=== PATIENT | male | born 1975 | race Caucasian/White ===

== ENCOUNTER 2018-01-09 10:01 | Emergency (ER) | payer OTHER | END 2018-01-09 11:44 | disposition home or self-care (01) | LOC: D.ER 10:01 | DX: S83.91XA Sprain of unspecified site of right knee, initial encounter (principal); X58.XXXA Exposure to other specified factors, initial encounter; Y93.89 Activity, other specified; Y92.019 Unspecified place in single-family (private) house as the place of occurrence of the external cause; M25.561 Pain in right knee ==

== ENCOUNTER 2018-09-18 15:36 | Emergency (ER) | payer OTHER ==
[~2018-09-18] VITALS: Ht 180.3 cm; Wt 129.5 kg
[2018-09-18 15:39] VITALS: Ht 180.3 cm; Wt 129.5 kg
[2018-09-18] MEDS ORDERED: ARAVA10 MG PO (15:41)
[2018-09-18 16:55] LABS: BASOPHILS 0.1 % (0-2); EOSINOPHILS 1.5 % (0-7); HEMATOCRIT 43.6 % (42.0-54.0); HEMOGLOBIN 15.3 g/dL (13.5-17.5); IMMATURE GRANULOCYTES 0.4 % (0-5); LYMPHOCYTES 19.7 % (15-50); MCH 31.7 pg (26.0-34.0); MCHC 35.1 g/dL (31.0-37.0); MCV 90.5 fL (80.0-100.0); MEAN PLATELET VOLUME 9.8 fL (7.4-10.4); MONOCYTES 9.4 % (2-11); NEUTROPHILS 68.9 % (40-80); PLATELET COUNT 263 10x3/uL (130-400); RBC 4.82 10x6/uL (4.20-6.10); WBC 13.6 10x3/uL (4.8-10.8)
[2018-09-18 17:12] LABS: CALC OSMOLALITY 274 mosm/kg (275-300); CALCIUM 8.7 mg/dL (8.5-10.1); CARBON DIOXIDE 25.9 mmol/L (21.0-32.0); CHLORIDE - SERUM 101 mmol/L (98-107); CREATININE - SERUM 0.9 mg/dL (0.6-1.3); GLUCOSE 88 mg/dL (74-106); POTASSIUM - SERUM 3.5 mmol/L (3.5-5.1); SODIUM 138 mmol/L (136-145); UREA NITROGEN 13 mg/dL (7-18); URIC ACID 5.3 mg/dL (2.6-7.2); eGFR NON AFRICAN AMERICAN > 90 mL/min (90-120)
[2018-09-18] MEDS ORDERED: STERAPRED DS 1010 MG PO (18:58)
[2018-09-18] MEDS ORDERED: NORCO 10-325 TA1 TAB PO (18:58)
[2018-09-18] MEDS ORDERED: CLEOCIN HCL300 MG PO (19:06)
[2018-09-18 19:35] VITALS: BP 160/104
== END 2018-09-18 19:35 | disposition home or self-care (01) ==
LOC: D.ER 15:36
PROVIDERS: Family Medicine
DX: M79.675 Pain in left toe(s) (principal); I10 Essential (primary) hypertension

== ENCOUNTER 2019-01-18 17:26 | Emergency (ER) | payer OTHER ==
[~2019-01-18] VITALS: Ht 180.3 cm; Wt 120.5 kg
[~2019-01-18 17:26] MED LIST: ARAVA10 MG PO; CLEOCIN HCL300 MG PO; NORCO 10-325 TA1 TAB PO; STERAPRED DS 1010 MG PO
[2019-01-18 17:33] VITALS: Ht 180.3 cm; Wt 120.5 kg
[2019-01-18] MEDS ORDERED: MEDROL DOSE PACK4 MG PO (20:42)
[2019-01-18] MEDS ORDERED: VOLTAREN75 MG PO (20:42)
[2019-01-18 21:04] VITALS: BP 135/76
== END 2019-01-18 21:11 | disposition home or self-care (01) ==
LOC: D.ER 17:26
DX: M79.671 Pain in right foot (principal); I10 Essential (primary) hypertension

== ENCOUNTER 2019-03-12 15:10 | Emergency (ER) | payer OTHER ==
[~2019-03-12] VITALS: Ht 180.3 cm; Wt 120.5 kg
[~2019-03-12 15:10] MED LIST changes: +MEDROL DOSE PACK4 MG PO; +VOLTAREN75 MG PO
[2019-03-12 15:49] VITALS: Ht 180.3 cm; Wt 120.5 kg
[2019-03-12] MEDS ORDERED: TORADOL10 MG PO (20:08)
[2019-03-12 20:15] VITALS: BP 128/79
== END 2019-03-12 20:15 | disposition home or self-care (01) ==
LOC: D.ER 15:10
DX: M25.462 Effusion, left knee (principal); S83.207A Unspecified tear of unspecified meniscus, current injury, left knee, initial encounter; X58.XXXA Exposure to other specified factors, initial encounter

== ENCOUNTER 2019-03-30 04:59 | Inpatient (IN) | payer SELFPAY ==
[2019-03-30] VITALS (10 sets, daily range): BP systolic 143–202; BP diastolic 77–99; BMI 37.7
[~2019-03-30] VITALS: Ht 180.3 cm; Wt 122.5 kg
[~2019-03-30 04:59] MED LIST changes: +TORADOL10 MG PO
[2019-03-30 06:29] LABS: ALBUMIN 3.2 g/dL (3.4-5.0); ALKALINE PHOSPHATASE 65 U/L (46-116); ALT (SGPT) 57 U/L (10-68); BILIRUBIN - TOTAL 0.64 mg/dL (0.2-1.3); CALC OSMOLALITY 282 mosm/kg (275-300); CARBON DIOXIDE 29.1 mmol/L (21.0-32.0); CHLORIDE - SERUM 107 mmol/L (98-107); CREATININE - SERUM 0.9 mg/dL (0.6-1.3); GLUCOSE 96 mg/dL (74-106); POTASSIUM - SERUM 3.2 mmol/L (3.5-5.1); SODIUM 142 mmol/L (136-145); UREA NITROGEN 13 mg/dL (7-18); eGFR NON AFRICAN AMERICAN > 90 mL/min (90-120)
[2019-03-30 06:45] LABS: BASOPHILS 0.2 % (0-2); HEMATOCRIT 39.3 % (42.0-54.0); HEMOGLOBIN 13.7 g/dL (13.5-17.5); IMMATURE GRANULOCYTES 0.4 % (0-5); LYMPHOCYTES 17.8 % (15-50); MCH 32.3 pg (26.0-34.0); MCHC 34.9 g/dL (31.0-37.0); MCV 92.7 fL (80.0-100.0); MEAN PLATELET VOLUME 10.1 fL (7.4-10.4); NEUTROPHILS 67.6 % (40-80); PLATELET COUNT 244 10x3/uL (130-400); RBC 4.24 10x6/uL (4.20-6.10); RDW 12.9 % (11.5-14.5); WBC 9.3 10x3/uL (4.8-10.8)
--- NOTE | 2019-03-30 07:08 | NUR ---
PT RTND FROM CT. ASSUMED CARE OF PT. RCVD BS REPORT FROM JAYSHREE FIELDS. PT CONT TO C/O RIGHT FACIAL PAIN. NOTIFIED
--- NOTE | 2019-03-30 09:09 | NUR ---
REPORT CALLED TO JAYSHREE GR BY SBAR FORMAT
--- NOTE | 2019-03-30 09:30 | NUR ---
PTS IN HW REPORTS PT HAVING "ALLERGIC RXN" PT SHAKING AND C/O SWELLING TO TONGUE AND UNDER TONGUE. SPEAKING FULL SENTENCES. NO RASH NOTED. DENIES UTICARIA.
--- NOTE | 2019-03-30 09:30 | NUR ---
ZOSYN GTT STOPPED
--- NOTE | 2019-03-30 10:17 | NUR ---
RESTING IN BED WITH EYES CLOSED. AROUSES EASILY WHEN ANME CALLED. "I THINK THE SWELLING IS GOING DOWN" CONT TO C/O RIGHT JAW/FACE PAIN. BP ELEVATED. DR LANGLEY NOTIFIED
--- NOTE | 2019-03-30 11:30 | NUR ---
ADMITTED PER STRETCHER TO ROOM 2107. A/A/OX4. STILL HAS SOME SWELLING UNDER TONGUE BUT NO DIFFICULTY BREATHING. ORIENTED TO ROOM AND CALL LIGHT. BED IN LOW POSITION WITH SIDERAILS UP X 1. PT UP TO BATHROOM AND HAS STEADY GAIT.
--- NOTE | 2019-03-30 11:37 | NUR ---
TRANSPORTED TO ROOM #3542 CONDITION STABLE
[2019-03-30] MEDS ORDERED: LISINOPRIL10 MG PO (11:41)
[2019-03-30] MEDS ORDERED: IBUPROFEN800 MG PO (11:43)
--- NOTE | 2019-03-30 16:45 | NUR ---
ASSESSMENT COMPLETE PT AAOX4 RESP UNLABORED SKIN W/D DENIES ANY NEEDS AT THIS TIME RT JAW NOTED SWOLLEN
--- NOTE | 2019-03-30 21:30 | NUR ---
EVENING ROUNDS COMPLETED. REPORT RECEIVED. PT SITTING UP IN BED WITH EYES OPEN, RR EVEN AND UNLABORED. BED IN LOW POSITION. ORDERED FLUIDS INFUSING ORDERED. NO S/S OF DISTRESS. INTRODUCED SELF TO PT. PT DENIES FURTHER NEEDS AT THIS TIME. EVENING MEDICATIONS ADMINISTERED WITHOUT ISSUE. CALL LUIGHT IN REACH. WILL CTM.
[2019-03-31] VITALS: BP 114/80
--- NOTE | 2019-03-31 01:41 | NUR ---
I have reviewed this patient and I concur with the Shift Assessment completed by the Licensed Practical Nurse today this shift.
--- NOTE | 2019-03-31 02:59 | NUR ---
ADMINISTERED ORDERED ANALGESIC FOR COMPLAINTS OF PAIN IN RIGHT SIDE OF JAW. PT STATES PAIN OF A 8 ON A SCALE OF 0-10.
[2019-03-31 04:00] VITALS: BP 191/97
--- NOTE | 2019-03-31 05:57 | NUR ---
MORNING MEDICATIONS ADMINISTERED WITHOUT ISSUE, 3.2 SERUM POTASSIUM TREATED ORDERED. NO S/S OF DISTRESS NOTED. CALL LIGHT IN REACH. WILL CTM.
[2019-03-31 06:14] LABS: BASOPHILS 0 % (0-2); EOSINOPHILS 0 % (0-7); HEMATOCRIT 34.2 % (42.0-54.0); HEMOGLOBIN 12.1 g/dL (13.5-17.5); IMMATURE GRANULOCYTES 0.2 % (0-5); LYMPHOCYTES 2.9 % (15-50); MCH 32.3 pg (26.0-34.0); MCHC 35.4 g/dL (31.0-37.0); MCV 91.2 fL (80.0-100.0); MONOCYTES 3.1 % (2-11); NEUTROPHILS 93.8 % (40-80); PLATELET COUNT 258 10x3/uL (130-400); RBC 3.75 10x6/uL (4.20-6.10); RDW 12.6 % (11.5-14.5)
[2019-03-31 06:16] LABS: WBC 12.4 10x3/uL (4.8-10.8)
[2019-03-31 06:33] LABS: ALBUMIN 2.5 g/dL (3.4-5.0); ALKALINE PHOSPHATASE 62 U/L (46-116); ALT (SGPT) 45 U/L (10-68); BILIRUBIN - TOTAL 0.35 mg/dL (0.2-1.3); CALCIUM 8.5 mg/dL (8.5-10.1); CARBON DIOXIDE 26.4 mmol/L (21.0-32.0); CHLORIDE - SERUM 105 mmol/L (98-107); CREATININE - SERUM 0.9 mg/dL (0.6-1.3); POTASSIUM - SERUM 3.5 mmol/L (3.5-5.1); PROTEIN - SERUM 6.5 g/dL (6.4-8.2); SODIUM 139 mmol/L (136-145); UREA NITROGEN 13 mg/dL (7-18); eGFR NON AFRICAN AMERICAN > 90 mL/min (90-120)
[2019-03-31 06:35] LABS: CALC OSMOLALITY 285 mosm/kg (275-300); GLUCOSE 239 mg/dL (74-106)
[2019-03-31] MEDS ORDERED: FOLIC ACID1 MG PO (07:56)
--- NOTE | 2019-03-31 08:01 | NUR ---
BEDSIDE SHIFT REPORT GIVEN WITH NIGHT NURSE. PT CO PAIN. SWELLING NOTED ON R SIDE OF FACE. NO RESP DISTRESS. GOAL OF PAIN CONTROL DISCUSSED WITH PT. PT AGREES. PT ALSO INFORMED OF NEEDING UA.
[2019-03-31 08:38] VITALS: BP 177/105
[2019-03-31 11:30] VITALS: BP 170/103
[2019-03-31 11:46] LABS: APPEARANCE CLEAR (CLEAR); BILIRUBIN NEGATIVE (NEGATIVE); COLOR YELLOW (YELLOW); GLUCOSE 250 mg/dL (NEGATIVE); KETONE NEGATIVE (NEGATIVE); NITRITE NEGATIVE (NEGATIVE); PROTEIN NEGATIVE (NEGATIVE); SPECIFIC GRAVITY 1.015 (1.005-1.020); UROBILINOGEN NORMAL (NORMAL)
[2019-03-31 14:48] VITALS: BP 166/101
--- NOTE | 2019-03-31 19:04 | NUR ---
RECIEVED UP IN BED WITH EYES OPENA ND TV ON. ALERT AND ORIENTED X4. IV TO LEFT AC WITH NS INFUSING AT 10CC/HR. UP AD BRIAN TO B/R. DENIES ANY NEEDS AT THISTIME.
[2019-03-31 20:00] VITALS: BP 157/82
[2019-04-01] VITALS: BP 156/85; BP 164/92
[2019-04-01 04:00] VITALS: BP 157/90
[2019-04-01 05:09] LABS: BASOPHILS 0 % (0-2); EOSINOPHILS 0 % (0-7); HEMATOCRIT 33.4 % (42.0-54.0); HEMOGLOBIN 11.8 g/dL (13.5-17.5); IMMATURE GRANULOCYTES 0.3 % (0-5); MCH 32.3 pg (26.0-34.0); MCHC 35.3 g/dL (31.0-37.0); MCV 91.5 fL (80.0-100.0); MEAN PLATELET VOLUME 10.1 fL (7.4-10.4); MONOCYTES 4.5 % (2-11); NEUTROPHILS 91.2 % (40-80); PLATELET COUNT 276 10x3/uL (130-400); RBC 3.65 10x6/uL (4.20-6.10); RDW 12.4 % (11.5-14.5); WBC 13.4 10x3/uL (4.8-10.8)
[2019-04-01 05:14] LABS: ALBUMIN 2.4 g/dL (3.4-5.0); ALKALINE PHOSPHATASE 63 U/L (46-116); ALT (SGPT) 37 U/L (10-68); BILIRUBIN - TOTAL 0.15 mg/dL (0.2-1.3); CALC OSMOLALITY 288 mosm/kg (275-300); CALCIUM 8.6 mg/dL (8.5-10.1); CARBON DIOXIDE 27.4 mmol/L (21.0-32.0); CHLORIDE - SERUM 106 mmol/L (98-107); CREATININE - SERUM 0.7 mg/dL (0.6-1.3); GLUCOSE 258 mg/dL (74-106); MAGNESIUM - SERUM 2.2 mg/dL (1.8-2.4); POTASSIUM - SERUM 3.7 mmol/L (3.5-5.1); PROTEIN - SERUM 6.1 g/dL (6.4-8.2); SODIUM 140 mmol/L (136-145); UREA NITROGEN 14 mg/dL (7-18); eGFR NON AFRICAN AMERICAN > 90 mL/min (90-120)
--- NOTE | 2019-04-01 07:30 | NUR ---
A/A/OX4. SITTING UP IN BED WATCHING TV. DENIES ANY INCREASED PAIN OR DISCOMFORT AT THIS TIME AND VOICES NO REQUESTS. STILL SOME SWELLING TO RIGHT LOWER JAW AND NECK. ASSESSMENT COMPLETED. IV OF N/S PATNE TO LEFT HAND AND INFUSING AT 100/CC HR. NO REDNESS OR EDEMA NOTED AT SITE. WILL CONTINUE POC.
[2019-04-01 09:32] VITALS: BP 153/99
[2019-04-01 11:00] VITALS: BP 172/92
[2019-04-01 15:00] VITALS: BP 150/86
--- NOTE | 2019-04-01 17:20 | NUR ---
I have reviewed this patient and I concur with the Shift Assessment completed by the Licensed Practical Nurse today this shift.
[2019-04-01 19:51] VITALS: BP 169/96
--- NOTE | 2019-04-01 19:52 | NUR ---
RECIEVED UP IN BED WITH EYES OPEN AND TV ON. ALERT AND ORIENTED X4. UP AD BRIAN. IV TO LEFT HAND WITH NS AT 100CC/HR. NO REDNESS OR SWELLING TO SITE. DENIES ANY NEEDS AT THIS TIME.
[2019-04-02 04:30] VITALS: BP 191/104
[2019-04-02 04:46] LABS: BASOPHILS 0 % (0-2); EOSINOPHILS 0 % (0-7); HEMOGLOBIN 11.7 g/dL (13.5-17.5); IMMATURE GRANULOCYTES 0.7 % (0-5); LYMPHOCYTES 4.6 % (15-50); MCH 31.5 pg (26.0-34.0); MCHC 34.4 g/dL (31.0-37.0); MCV 91.6 fL (80.0-100.0); MEAN PLATELET VOLUME 9.9 fL (7.4-10.4); MONOCYTES 6.9 % (2-11); NEUTROPHILS 87.8 % (40-80); PLATELET COUNT 271 10x3/uL (130-400); RBC 3.71 10x6/uL (4.20-6.10); RDW 12.5 % (11.5-14.5); WBC 15.6 10x3/uL (4.8-10.8)
[2019-04-02 05:09] LABS: ALBUMIN 2.5 g/dL (3.4-5.0); ALKALINE PHOSPHATASE 69 U/L (46-116); ALT (SGPT) 29 U/L (10-68); BILIRUBIN - TOTAL 0.21 mg/dL (0.2-1.3); CALC OSMOLALITY 289 mosm/kg (275-300); CALCIUM 8.5 mg/dL (8.5-10.1); CARBON DIOXIDE 27.5 mmol/L (21.0-32.0); CHLORIDE - SERUM 105 mmol/L (98-107); CREATININE - SERUM 0.9 mg/dL (0.6-1.3); GLUCOSE 256 mg/dL (74-106); MAGNESIUM - SERUM 2.1 mg/dL (1.8-2.4); POTASSIUM - SERUM 3.7 mmol/L (3.5-5.1); PROTEIN - SERUM 6.1 g/dL (6.4-8.2); SODIUM 140 mmol/L (136-145); UREA NITROGEN 17 mg/dL (7-18); eGFR NON AFRICAN AMERICAN > 90 mL/min (90-120)
--- NOTE | 2019-04-02 06:05 | NUR ---
UP AND DOWN ALL NIGHT. NOT SLEEPING WELL. TAKES SHORT NAPS AND THEN UNABLE TO SLEEP. LAYING IN BED WITH EYES CLOSED AT THIS TIME.
--- NOTE | 2019-04-02 07:30 | NUR ---
A/A/OX4. DENIES ANY PAIN OR DISCOMFORT AND VOICES NO REQUESTS. ASSESSMENT COMPLETED AND NO WEAKNESS NOTED ON RIGHT SIDE TODAY AND STATES HE FEELS VERY GOOD TODAY. WILL CONTINUE POC ORDERED. SL X 2 PATENT WITHOUT REDNESS OR EDEMA AT SITE. CALL LIGHT IN REACH AND BED IN LOW POSITION. AT BEDSIDE.
--- NOTE | 2019-04-02 07:30 | NUR ---
A/A/OX3. HAVING SOME PAIN AT PRESENT TIME BUT STATES HE CAN WAIT FOR PAIN MED. IV PATENT TO LEFT HAND WITH NO REDNESS OR EDEMA AT SITE. ASSESSMENT COMPLETED AND WILL CONTINUE POC. CALL LIGHT IN REACH AND BED IN LOW POSITION.
[2019-04-02 10:09] VITALS: BP 123/78
--- NOTE | 2019-04-02 14:02 | NUR ---
I have reviewed this patient and I concur with the Shift Assessment completed by the Licensed Practical Nurse today this shift.
[2019-04-02] MEDS ORDERED: AUGMENTIN 875-11 TAB PO (14:11)
[2019-04-02] MEDS ORDERED: CLEOCIN HCL300 MG PO (14:11)
--- NOTE | 2019-04-02 16:16 | NUR ---
DISCHARGE INSTRUCTION REVIEWED WITH PT AND HIS . VERBALIZES UNDERSTANDING WITH NO QUESTIONS. SL X 2 RIGHT WRIST AND RIGHT AC REMOVED WITH CATH TIPS INTACT. PT LEFT FLOOR AMB AT HIS REQUEST. HAD ALL OF HIS PERSONAL BELONGINGS AND LEFT FACILITY VIA HIS OWN PRIVATE VEHICLE WITH HIS .
--- NOTE | 2019-04-02 16:30 | NUR ---
IV LEFT HAND INFILTRATED AND DC'D. RESTARTED IN RIGHT INNER WRIST X 2 ATTEMPTS AND TOLERATED WELL.
[2019-04-02 19:02] VITALS: BP 174/91
[2019-04-02 19:06] VITALS: BP 165/86
[2019-04-02 20:00] VITALS: BP 168/97
--- NOTE | 2019-04-02 20:21 | NUR ---
RECIEVED UP IN BED WITH VISITOR AT BEDSIDE. ALERT AND ORIENTED X4. UP AD BRIAN. IV TO RIGHT FA WITH NS AT 100CC/HR. NO REDNESS OR SWELLING TO SIT. RIGHT SIDE OF FACE WITH SLIGHT SWELLING. DENIES ANY NEEDS AT THIS TIME.
[2019-04-03] VITALS (7 sets, daily range): BP systolic 137–179; BP diastolic 84–112; Ht 180.3 cm; Wt 122.5 kg
--- NOTE | 2019-04-03 01:27 | NUR ---
PT CAME OUT OF HIS ROOM WITH C/O INCREASED SWELLING AND PAIN. STATING THAT MORPHINE DID NOT HELP HIS PAIN. LEFT SIDE OF FACE APPEARS MORE SWOLLEN AND HARD FROM EAR LOBE TO MID DU. CALLED GUY PEREZ WITH NEW ORDERS TO STOP LISINOPRIL GIVE APRESOLINE FOR SYSTOLIC GREATER RHAN 170. ALSO, D/C MORPHINE AND GIVE DILAUDID, RESUME SOLUMEDROL AT 60MGQ8 HRS. PT AAWARE OF NEW ORDERS. DILAUDID GIVE WITH PAIN RELIEF.
--- NOTE | 2019-04-03 02:20 | NUR ---
RECIEVED UP IN BED WITH VISITORS AT BEDSIDE. IV TO RIGHT FA SL.. DENIES ANY PAIN AT THIS TIME. RIGHT SIDE OF FACE STILL SWOLLEN AND HARDEN AREA FROM MANDIBLE TO MID CHIN. STATES "IT'S BETTER TODAY". UP AD BRIAN. DENIES ANY NEEDS AT THIS TIME.
[2019-04-03 05:19] LABS: BASOPHILS 0.1 % (0-2); EOSINOPHILS 0.1 % (0-7); HEMATOCRIT 35.7 % (42.0-54.0); HEMOGLOBIN 12.4 g/dL (13.5-17.5); IMMATURE GRANULOCYTES 1.2 % (0-5); LYMPHOCYTES 5.9 % (15-50); MCH 31.7 pg (26.0-34.0); MCHC 34.7 g/dL (31.0-37.0); MCV 91.3 fL (80.0-100.0); MEAN PLATELET VOLUME 9.7 fL (7.4-10.4); NEUTROPHILS 81.7 % (40-80); PLATELET COUNT 321 10x3/uL (130-400); RBC 3.91 10x6/uL (4.20-6.10); RDW 12.5 % (11.5-14.5); WBC 16.4 10x3/uL (4.8-10.8)
[2019-04-03 05:39] LABS: ALBUMIN 2.6 g/dL (3.4-5.0); ALKALINE PHOSPHATASE 54 U/L (46-116); ALT (SGPT) 29 U/L (10-68); CALCIUM 8.4 mg/dL (8.5-10.1); CHLORIDE - SERUM 104 mmol/L (98-107); CREATININE - SERUM 0.9 mg/dL (0.6-1.3); MAGNESIUM - SERUM 2.2 mg/dL (1.8-2.4); POTASSIUM - SERUM 3.5 mmol/L (3.5-5.1); PROTEIN - SERUM 6.3 g/dL (6.4-8.2); SODIUM 140 mmol/L (136-145); UREA NITROGEN 15 mg/dL (7-18); VANCOMYCIN - TROUGH 2.2 ug/mL (10.0-20.0); eGFR NON AFRICAN AMERICAN > 90 mL/min (90-120)
[2019-04-03 05:43] LABS: CALC OSMOLALITY 282 mosm/kg (275-300); GLUCOSE 145 mg/dL (74-106)
--- NOTE | 2019-04-03 08:03 | NUR ---
REPORT RECEIVED. WILL CONTINUE WITH POC. PT CURRENTLY LYING SEMI FOWLERS. CALL LIGHT W/I REACH. PT IS AAO AND UP AD BRIAN. RR EVEN AND UNLABORED ON RA. NS INFUSING @100ML/HR VIA R.FOR PIV. PT COMPLAINING OF LEFT JAW/NECK PAIN. PT REQUEST PAIN MEDICATION. PAIN MEDICATION ADMINISTERED BY NIGHTSHIFT. PT DENIES ANY FURTHER NEEDS. NO S/S OF DISTRESS NOTED. WILL CTM.
--- NOTE | 2019-04-03 13:11 | MORECARE ---
CASE MANAGEMENT DISCHARGE SUMMARY PATIENT: BLAYNE JONES UNIT: [id number] ADM DATE: 03/30/19 AGE: 43 : 71 SEX: M ROOM/BED: D.2108 AUTHOR: GOGO RIVAS PHYSICIAN: REFERRING PHYSICIAN: MARY OBRIEN MD DATE OF SERVICE: 04/03/19 Discharge Plan Patient Name: BLAYNE JONES [facility] [facility] 1975 Planned Disposition: Home Anticipated Discharge Date: 04/03/19 Discharge Date: Expected LOS: 4 Initial Reviewer: [email or web address] Initial Review Date: 04/03/2019 Generated: 04/03/19 2:11 pm Patient Name: BLAYNE JONES Page 13741 at 1311 All edits/amendments must be made on the electronic document DICTATION DATE: 04/03/19 1310 RECRUITER: REHANA 04/03/19 1310 RPT#: [id number] DC DATE: STATUS: ADM IN [facility] [address] [place] [address] END OF REPORT
--- NOTE | 2019-04-03 13:51 | MORECARE ---
CASE MANAGEMENT DISCHARGE SUMMARY PATIENT: BLAYNE JONES UNIT: [id number] ADM DATE: 03/30/19 AGE: 43 : 71 SEX: M ROOM/BED: D.2104 AUTHOR: GOGO RIVAS PHYSICIAN: REFERRING PHYSICIAN: MARY OBRIEN MD DATE OF SERVICE: 04/03/19 Discharge Plan Patient Name: BLAYNE JONES [facility] [facility] 1975 Planned Disposition: Home Anticipated Discharge Date: 04/03/19 Discharge Date: Expected LOS: 4 Initial Reviewer: [email or web address] Initial Review Date: 04/03/2019 Generated: 04/03/19 2:51 pm DCPIA - Discharge Planning Initial Assessment Updated by [email or web address]: Bin Miranda on 04/03/19 1:50 pm * Is the patient Alert and Oriented? Yes * How many steps to enter\exit or inside your home? * PCP [facility] * Pharmacy [facility] MAIL ORDER OR [facility] OR [facility], DEPENDING ON HOW LATE IT IS. * Preadmission Environment Home with Family * ADLs Independent * Equipment None * Other Equipment NO MEDICAL EQUIPMENT PROVIDER PREFERENCE * List name and contact numbers for known caregivers / representatives who currently or will assist patient after discharge: DARRELL KAISER, MOTHER, * Verbal permission to speak to the caregivers and representatives has been obtained from the patient. N/A * Community resources currently utilized None * Please name any agencies selected above. NONE * Additional services required to return to the preadmission environment? No * Can the patient safely return to the preadmission environment? Yes * Has this patient been hospitalized within the prior 30 days at any hospital? No Last DP export: 04/03/19 12:11 pm Patient Name: BLAYNE JONES Page 96150 at 1351 All edits/amendments must be made on the electronic document DICTATION DATE: 04/03/19 1350 SUPPLIER DIVERSITY DIRECTOR: REHANA 04/03/19 1350 RPT#: [id number] DC DATE: STATUS: ADM IN [facility] [address] [place] [address] END OF REPORT
--- NOTE | 2019-04-03 13:59 | MORECARE ---
CASE MANAGEMENT DISCHARGE SUMMARY PATIENT: BLAYNE JONES UNIT: [id number] ADM DATE: 03/30/19 AGE: 43 : 71 SEX: M ROOM/BED: D.2103 AUTHOR: EVELYNDOC PHYSICIAN: REFERRING PHYSICIAN: MARY OBRIEN MD DATE OF SERVICE: 04/03/19 Discharge Plan Patient Name: BLAYNE JONES Facility: [facility]:[place] : 1975 Planned Disposition: Home Anticipated Discharge Date: 04/03/19 Discharge Date: Expected LOS: 4 Initial Reviewer: [email or web address] Initial Review Date: 04/03/2019 Generated: 04/03/19 2:58 pm Comments DCP- Discharge Planning Updated by [email or web address]: Bin Miranda on 04/03/19 12:[address] Patient Name: BLAYNE JONES Admission Status: ER Accout number: [id number] Admission Date: 03-30-2019 : 1975 Admission Diagnosis:CELLULITIS OF HEAD [ANY PART, EXCEPT FACE] Attending: MARY OBRIEN Current LOS: 4 Anticipated DC Date: 04-03-2019 Planned Disposition: Home Primary Insurance: UNINSURED DISCOUNT PLAN Discharge Planning Comments: CM MET WITH PT IN ROOM TO DISCUSS DISCHARGE PLANNING AND NEEDS. PT REPORTS LIVING AT HOME INDEPENDENTLY WITH A ROOM MATE. PT HAS NO MEDICAL EQUIPMENT AND NO OUTSIDE SERVICES ASSISTING IN THE HOME. CM DISCUSSED AVAILABILITY OF HOME HEALTH, REHAB SERVICES AND MEDICAL EQUIPMENT. PT DENIES DISCHARGE NEEDS, REPORTS HE PLANS TO DRIVE HIMSELF HOME AT TIME OF DISCHARGE, BUT DOES HAVE A FRIEND TO PICK HIM UP IF NECESSARY. PT REPORTS HAVING A DENTIST TO FOLLOW UP WITH FOR TOOTH EXTRACTION ONCE HE LEAVES THE HOSPITAL. PT PLANS TO DISCHARGE HOME WITH ROOM MATE AT DISCHARGE. PT DENIES DISCHARGE NEEDS, STATES HE IS PLANNING TO DRIVE HIMSELF HOME AT DISCHARGE. Phone Engineer: Bin Miranda DCPIA - Discharge Planning Initial Assessment Updated by [email or web address]: Bin Miranda on 04/03/19 1:50 pm * Is the patient Alert and Oriented? Yes * How many steps to enter\exit or inside your home? * PCP [facility] * Pharmacy [facility] MAIL ORDER OR [facility] OR [facility], DEPENDING ON HOW LATE IT IS. * Preadmission Environment Home with Family * ADLs Independent * Equipment None * Other Equipment NO MEDICAL EQUIPMENT PROVIDER PREFERENCE * List name and contact numbers for known caregivers / representatives who currently or will assist patient after discharge: DARRELL KAISER, MOTHER, * Verbal permission to speak to the caregivers and representatives has been obtained from the patient. N/A * Community resources currently utilized None * Please name any agencies selected above. NONE * Additional services required to return to the preadmission environment? No * Can the patient safely return to the preadmission environment? Yes * Has this patient been hospitalized within the prior 30 days at any hospital? No Last DP export: 04/03/19 12:51 pm Patient Name: BLAYNE JONES Page 99888 at 1359 All edits/amendments must be made on the electronic document DICTATION DATE: 04/03/191357 METAL TANK BUILDER: REHANA 04/03/19 1358 RPT#: [id number] MO DATE: STATUS: ADM IN [facility] [address] [place] [address] END OF REPORT
--- NOTE | 2019-04-03 16:27 | NUR ---
I have reviewed this patient and I concur with the Shift Assessment completed by the Licensed Practical Nurse today this shift.
[2019-04-04] VITALS: BP 142/82
[2019-04-04 04:30] VITALS: BP 162/92
[2019-04-04 05:42] LABS: ALBUMIN 2.8 g/dL (3.4-5.0); ALKALINE PHOSPHATASE 99 U/L (46-116); ALT (SGPT) 31 U/L (10-68); BILIRUBIN - TOTAL 0.28 mg/dL (0.2-1.3); CALC OSMOLALITY 284 mosm/kg (275-300); CALCIUM 8.5 mg/dL (8.5-10.1); CARBON DIOXIDE 27.8 mmol/L (21.0-32.0); CHLORIDE - SERUM 102 mmol/L (98-107); MAGNESIUM - SERUM 2.4 mg/dL (1.8-2.4); POTASSIUM - SERUM 3.9 mmol/L (3.5-5.1); PROTEIN - SERUM 6.9 g/dL (6.4-8.2); SODIUM 137 mmol/L (136-145); UREA NITROGEN 16 mg/dL (7-18); eGFR NON AFRICAN AMERICAN 86 mL/min (90-120)
[2019-04-04 05:44] LABS: GLUCOSE 270 mg/dL (74-106)
[2019-04-04 05:53] LABS: HEMATOCRIT 40.8 % (42.0-54.0); HEMOGLOBIN 14.1 g/dL (13.5-17.5); MCH 31.8 pg (26.0-34.0); MCHC 34.6 g/dL (31.0-37.0); MCV 92.1 fL (80.0-100.0); MEAN PLATELET VOLUME 9.9 fL (7.4-10.4); PLATELET COUNT 394 10x3/uL (130-400); RBC 4.43 10x6/uL (4.20-6.10); RDW 12.6 % (11.5-14.5); WBC 20.8 10x3/uL (4.8-10.8)
[2019-04-04 06:53] LABS: LYMPHOCYTES 5 % (15-50); MONOCYTES 7 % (2-11); NEUTROPHILS 87 % (40-80); PLATELET ESTIMATE NORMAL
--- NOTE | 2019-04-04 08:53 | NUR ---
AM MEDS GIVEN AT THIS TIME. PT A/O X4, RESP EVEN AND NONLABORED ON RA. IVPB CLEOCIN HUNG AT THIS TIME TO INFUSE TO RT FA. PT RATES PAIN LEVEL OF 6/10, STATED PAIN MEDICATION IS DUE AROUND 10. RT SIDE OF FACE SWOLLEN, PT DENIES ANY NEEDS AT THIS TIME. CALL LIGHT IN REACH, NAD NOTED, WILL CONTINUE PLAN OF CARE.
[2019-04-04 09:18] VITALS: BP 179/72
--- NOTE | 2019-04-04 10:07 | NUR ---
1MG OF DILAUDID FOR PAIN LEVEL OF 9/10. PT DENIES ANY OTHER NEEDS AT THIS TIME. CALL LIGHT IN REACH, NAD NOTED, WILL CONTINUE TO MONTIOR
--- NOTE | 2019-04-04 15:52 | NUR ---
GAVE 1MG OF DILAUDID FOR PAIN LEVEL OF 9/10. IVPB CLEOCIN HUNG AT THIS TIME. PT DENIES ANY OTHER NEEDS AT THIS TIME. FAMILY AT BEDSIDE, NAD NOTED.
[2019-04-04 16:09] LABS: BASOPHILS 0.1 % (0-2); EOSINOPHILS 0 % (0-7); HEMATOCRIT 38.6 % (42.0-54.0); HEMOGLOBIN 14.2 g/dL (13.5-17.5); IMMATURE GRANULOCYTES 2.3 % (0-5); LYMPHOCYTES 3.2 % (15-50); MCH 33.6 pg (26.0-34.0); MCHC 36.8 g/dL (31.0-37.0); MCV 91.3 fL (80.0-100.0); MONOCYTES 6.7 % (2-11); NEUTROPHILS 87.7 % (40-80); PLATELET COUNT 331 10x3/uL (130-400); RBC 4.23 10x6/uL (4.20-6.10); RDW 12.9 % (11.5-14.5); WBC 20.9 10x3/uL (4.8-10.8)
[2019-04-04 16:21] LABS: INR 1.01 (0.85-1.17); PROTIME 12.8 SECONDS (11.6-15.0)
[2019-04-04 16:27] LABS: ALBUMIN 2.6 g/dL (3.4-5.0); ALKALINE PHOSPHATASE 78 U/L (46-116); ALT (SGPT) 31 U/L (10-68); BILIRUBIN - TOTAL 0.18 mg/dL (0.2-1.3); CALC OSMOLALITY 284 mosm/kg (275-300); CALCIUM 7.9 mg/dL (8.5-10.1); CARBON DIOXIDE 26.8 mmol/L (21.0-32.0); CHLORIDE - SERUM 104 mmol/L (98-107); CREATININE - SERUM 0.9 mg/dL (0.6-1.3); GLUCOSE 190 mg/dL (74-106); POTASSIUM - SERUM 3.9 mmol/L (3.5-5.1); PROTEIN - SERUM 5.9 g/dL (6.4-8.2); SODIUM 139 mmol/L (136-145); UREA NITROGEN 17 mg/dL (7-18); eGFR NON AFRICAN AMERICAN > 90 mL/min (90-120)
--- NOTE | 2019-04-04 19:00 | NUR ---
PATIENT LAYING IN BED. NO COMPLAINTS AT THIS TIME. NO DISTRESS NOTED. FAMILY AT BEDSIDE.
[2019-04-05] VITALS: BP 186/95
--- NOTE | 2019-04-05 02:05 | NUR ---
PATIENT LAYING IN BED. COMPLAINS OF PAIN. NO OTHER COMPLAINTS AT THIS TIME. NO DISTRESS NOTED.
[2019-04-05 04:30] VITALS: BP 151/88
[2019-04-05 07:14] LABS: WBC 21.7 10x3/uL (4.8-10.8)
[2019-04-05 07:15] LABS: HEMATOCRIT 36.7 % (42.0-54.0); HEMOGLOBIN 12.7 g/dL (13.5-17.5); MCH 31.8 pg (26.0-34.0); MCHC 34.6 g/dL (31.0-37.0); MCV 91.8 fL (80.0-100.0); PLATELET COUNT 329 10x3/uL (130-400); RDW 12.6 % (11.5-14.5)
[2019-04-05 07:31] LABS: ALBUMIN 2.4 g/dL (3.4-5.0); ALKALINE PHOSPHATASE 67 U/L (46-116); ALT (SGPT) 24 U/L (10-68); CALC OSMOLALITY 285 mosm/kg (275-300); CALCIUM 8.4 mg/dL (8.5-10.1); CARBON DIOXIDE 25.1 mmol/L (21.0-32.0); CHLORIDE - SERUM 104 mmol/L (98-107); CREATININE - SERUM 0.8 mg/dL (0.6-1.3); GLUCOSE 247 mg/dL (74-106); MAGNESIUM - SERUM 2.4 mg/dL (1.8-2.4); POTASSIUM - SERUM 3.8 mmol/L (3.5-5.1); PROTEIN - SERUM 6.2 g/dL (6.4-8.2); SODIUM 138 mmol/L (136-145); UREA NITROGEN 18 mg/dL (7-18); eGFR NON AFRICAN AMERICAN > 90 mL/min (90-120)
[2019-04-05 07:44] LABS: LYMPHOCYTES 5 % (15-50); MONOCYTES 6 % (2-11); NEUTROPHILS 89 % (40-80); PLATELET ESTIMATE NORMAL
[2019-04-05 09:23] VITALS: BP 176/97
[2019-04-05 12:05] VITALS: BP 163/95
[2019-04-05 18:15] VITALS: BP 126/79
--- NOTE | 2019-04-05 18:41 | NUR ---
I have reviewed this patient and I concur with the Shift Assessment completed by the Licensed Practical Nurse today this shift.
--- NOTE | 2019-04-05 19:26 | NUR ---
ASSESSMENT COMPLETE, PT A&O. RESPERATIONS EVEN ON RA. IV TO RIGHT FOREAR, SL. SITE CLEAN AND DRY. PT CURRENTLY DENIES PAIN OR NEEDS. BED LOW, CL IN REACH.
[2019-04-05 20:00] VITALS: BP 155/100
--- NOTE | 2019-04-05 21:37 | NUR ---
AMBULATING IN [place], GAIT STEADY.
--- NOTE | 2019-04-05 23:31 | NUR ---
DILAUDID 1 MG GIVEN FOR C/O PAIN TO RIGHT JAW. RATES PAIN AT A 7 ON PAIN SCALE.
[2019-04-06] VITALS: BP 150/100
--- NOTE | 2019-04-06 03:48 | NUR ---
IV TO RIGHT WIRST COVERED, PT UP TO SHOWER.
[2019-04-06 04:00] VITALS: BP 137/76
--- NOTE | 2019-04-06 04:03 | NUR ---
PTS BP 172/102. HYDRALAZINE 10 MG GIVEN SLOW IVP.
--- NOTE | 2019-04-06 07:50 | OP ---
PATIENT NAME: BLAYNE JONES MEDICAL RECORD: [id number] :[birth year] LOCATION:D.M2 D.2108 ADMISSION DATE:03/30/19 SURGEON: LEVI HAWTHORNE MD DATE OF OPERATION: 04/05/2019 PREOPERATIVE DIAGNOSIS: Right mandibular dental infection with a broken off tooth. POSTOPERATIVE DIAGNOSIS: Right mandibular dental infection with a broken off tooth. PROCEDURE: Extraction of a right mandibular molar, incision and drainage of dental abscess. SURGEON: Levi Hawthorne MD ANESTHESIA: General orotracheal. BLOOD LOSS: 1 cc. SPECIMENS: Right mandibular tooth and cultures for aerobic, anaerobic, and Gram stain. COMPLICATIONS: None. DISPOSITION: Recovery stable. DESCRIPTION OF PROCEDURE: He was brought to the operating room and placed in supine position, sedated and intubated by anesthesia. A rubber tooth block was placed between the left molars. Right side was examined. He had a tooth that was completely decayed with expose to separate the tooth roots. The entire tooth above the gumline was gone and there was some mucosa that actually partially healed over that. There was some bone spicules sticking up and decayed brown tooth roots. The area medially and laterally was injected with a total of less than 1 cc of 1% lidocaine with 1:100,000 epinephrine. Started with the posterior tooth roots, the lingual side was addressed first. A pick was used to dissect around it, loosening up and then the medial posterior root was removed, then the lateral posterior root was removed. The 2 anterior roots actually partially connected together and they were dissected out with a pick. Dental ligaments were loosened up and then it was grasped and removed, all those roots removed, completely intact. There was really no purulence draining from any of the tooth roots. The other teeth looked okay. There was no inflammation around them. On the lingual surface of the mandible, just immediately below the tooth I extracted was soft. I inserted a syringe with an 18-gauge needle, evacuated about 5 cc of thick yellow purulence. This was sent for aerobic, anaerobic, and Gram stain. A vertical incision was made with a 15-blade there and quite a bit more purulence was expressed until that was completely flat. The mouth was then irrigated repeatedly with Peridex. There was really no significant bleeding there. The rubber tooth guard bite block was removed. Pharynx was suctioned. He was awakened, extubated, and transported to recovery in good condition. No complications. TRANSINT:[id number] Voice Confirmation ID: [id number] DOCUMENT ID: [id number] OPERATIVE REPORT [id number] ROBERT,LEVI GILLILAND MD at 0750 CC: [id number] DICTATION DATE: 04/05/19 0948 ROPE MAKING MACHINE OPERATOR: 04/05/19 1030 ADM IN [place] [id number] [place] [address]
--- NOTE | 2019-04-06 07:50 | CN ---
PATIENT NAME:BLAYNE JONES MEDICAL RECORD: [id number] : [birth year] LOCATION:D. D.2108 ADMIT DATE: 03/30/19 ACCOUNT: [id number] CONSULTING PHYSICIAN: KIRTI HALE MD REFERRING PHYSICIAN: MARY OBRIEN MD DATE OF CONSULTATION: 04/03/2019 HISTORY: Mr. Jones is a 43-year-old male who presented with toothache and progressive right jaw pain and swelling for about a week. He was admitted on the 30 of March, about 5 days ago. He was placed on clindamycin and Zosyn. I believe he appeared to have an allergy to the Zosyn, so he was changed to clindamycin, imipenem, and vancomycin. White count on admission was just 9. It did go up after he had been put on steroids and basically nothing has changed since then. Pain and swelling have stayed about the same. He really has not responded. He had a CT when he was admitted that showed no abscess. He had a CT yesterday that showed he had no abscess, but he is not really improving with treatment. PAST MEDICAL HISTORY: Includes arthritis. MEDICATIONS: His previous medications include Voltaren and Toradol. He had been on some Keflex and some amoxicillin, I believe, prior to admission, given to him by dentist. White count on admission was 9.3, hemoglobin 13.7, and neutrophils 67%. His primary doctor is [place] doctor. He does not actively have a dentist currently. PHYSICAL EXAMINATION: GENERAL: He is awake and alert. He has eaten a sandwich. He has got a normal voice. FACE: Normal and symmetric. EYES: Sclerae and conjunctivae are normal. NOSE: Normal. ORAL CAVITY AND OROPHARYNX: He has no trismus. He has got a right mandibular molar that is for the most part broken up. He has got some spicules sticking up above the gum, but most of the tooth is gone. He has got firmness basically slightly on the medial aspect and the lateral aspect and right under that tooth. The floor of the mouth is really not involved. There is no palpable abscess. It is just firm around that area. NECK: No other adenopathy, inflammation, or tenderness. IMPRESSION: Dental infection with cellulitis, edema, and some phlegmon changes there, but no fluid collection to drain. He is not responding to antibiotics. I am going to switch him to clindamycin and Rocephin. He has already been given some steroids. If he does not respond, he can probably even be discharged as his exam is now to get that tooth taken care of, but if they decide he cannot go home there is nothing to drain, but the tooth could be extracted. TRANSINT:[id number] Voice Confirmation ID: [id number] DOCUMENT ID: [id number] CONSULT REPORT [id number] ROBERT,BLAYNE HALE, KIRTI HARRIS at 0750 CC: [id number] DICTATION DATE: 04/03/19 1608 PLATER HOT DIP: 04/03/19 1722 ADM IN [place] [id number] [place] [id number]
[2019-04-06 09:43] VITALS: BP 162/98
[2019-04-06 12:32] LABS: BASOPHILS 0.1 % (0-2); EOSINOPHILS 0.1 % (0-7); HEMATOCRIT 41.6 % (42.0-54.0); HEMOGLOBIN 14.6 g/dL (13.5-17.5); IMMATURE GRANULOCYTES 3.3 % (0-5); LYMPHOCYTES 5.3 % (15-50); MCH 32.6 pg (26.0-34.0); MCHC 35.1 g/dL (31.0-37.0); MCV 92.9 fL (80.0-100.0); MEAN PLATELET VOLUME 9.6 fL (7.4-10.4); MONOCYTES 7.7 % (2-11); NEUTROPHILS 83.5 % (40-80); PLATELET COUNT 414 10x3/uL (130-400); RBC 4.48 10x6/uL (4.20-6.10); RDW 12.9 % (11.5-14.5); WBC 21.3 10x3/uL (4.8-10.8)
[2019-04-06 12:47] LABS: CALC OSMOLALITY 280 mosm/kg (275-300); CALCIUM 8.7 mg/dL (8.5-10.1); CHLORIDE - SERUM 102 mmol/L (98-107); CREATININE - SERUM 0.9 mg/dL (0.6-1.3); GLUCOSE 139 mg/dL (74-106); POTASSIUM - SERUM 3.4 mmol/L (3.5-5.1); SODIUM 139 mmol/L (136-145); UREA NITROGEN 15 mg/dL (7-18); eGFR NON AFRICAN AMERICAN > 90 mL/min (90-120)
[2019-04-06 13:27] VITALS: BP 160/83
--- NOTE | 2019-04-06 13:59 | NUR ---
I have reviewed this patient and I concur with the Shift Assessment completed by the Licensed Practical Nurse today this shift.
[2019-04-06] MEDS ORDERED: NORVASC10 MG PO (15:44)
[2019-04-06] MEDS ORDERED: HYDROCODON-ACE1 EA10 PO (16:11)
--- NOTE | 2019-04-06 16:37 | NUR ---
PT DC'D HOME WITH DISCHARGE INSTRUCTIONS AND PRESCRIPTIONS. PT LFA IV DC'D WITH CATHETER TIP IN PLACE. NO S/S OF DISTRESS. VITALS STABLE.
--- NOTE | 2019-04-06 16:49 | MORECARE ---
CASE MANAGEMENT DISCHARGE SUMMARY PATIENT: BLAYNE JONES UNIT: [id number] ADM DATE: 03/30/19 AGE: 43 : 71 SEX: M ROOM/BED: D.2109 AUTHOR: EVELYN,DOC PHYSICIAN: REFERRING PHYSICIAN: MARY OBRIEN MD DATE OF SERVICE: 04/06/19 Discharge Plan Patient Name: BLAYNE JONES Facility: [facility]:[place] : 1975 Planned Disposition: Home Anticipated Discharge Date: 04/06/19 Discharge Date: Expected LOS: 7 Initial Reviewer: [email or web address] Initial Review Date: 04/03/2019 Generated: 04/06/19 5:49 pm DCP- Discharge Planning Updated by [email or web address]: Bin Miranda on 04/03/19 12:[address] Patient Name: BLAYNE JONES Admission Status: ER Accout number: [id number] Admission Date: 03-30-2019 : 1975 Admission Diagnosis:CELLULITIS OF HEAD [ANY PART, EXCEPT FACE] Attending: MARY OBRIEN Current LOS: 4 Anticipated DC Date: 04-03-2019 Planned Disposition: Home Primary Insurance: UNINSURED DISCOUNT PLAN Discharge Planning Comments: CM MET WITH PT IN ROOM TO DISCUSS DISCHARGE PLANNING AND NEEDS. PT REPORTS LIVING AT HOME INDEPENDENTLY WITH A ROOM MATE. PT HAS NO MEDICAL EQUIPMENT AND NO OUTSIDE SERVICES ASSISTING IN THE HOME. CM DISCUSSED AVAILABILITY OF HOME HEALTH, REHAB SERVICES AND MEDICAL EQUIPMENT. PT DENIES DISCHARGE NEEDS, REPORTS HE PLANS TO DRIVE HIMSELF HOME AT TIME OF DISCHARGE, BUT DOES HAVE A FRIEND TO PICK HIM UP IF NECESSARY. PT REPORTS HAVING A DENTIST TO FOLLOW UP WITH FOR TOOTH EXTRACTION ONCE HE LEAVES THE HOSPITAL. PT PLANS TO DISCHARGE HOME WITH ROOM MATE AT DISCHARGE. PT DENIES DISCHARGE NEEDS, STATES HE IS PLANNING TO DRIVE HIMSELF HOME AT DISCHARGE. Lamp Shade Assembler: Bin Miranda DCPIA - Discharge Planning Initial Assessment Updated by [email or web address]: Bin Miranda on 04/03/19 1:50 pm * Is the patient Alert and Oriented? Yes * How many steps to enter\exit or inside your home? * PCP [facility] * Pharmacy [facility] MAIL ORDER OR [facility] OR [facility], DEPENDING ON HOW LATE IT IS. * Preadmission Environment Home with Family * ADLs Independent * Equipment None * Other Equipment NO MEDICAL EQUIPMENT PROVIDER PREFERENCE * List name and contact numbers for known caregivers / representatives who currently or will assist patient after discharge: DARRELL KAISER, MOTHER, * Verbal permission to speak to the caregivers and representatives has been obtained from the patient. N/A * Community resources currently utilized None * Please name any agencies selected above. NONE * Additional services required to return to the preadmission environment? No * Can the patient safely return to the preadmission environment? Yes * Has this patient been hospitalized within the prior 30 days at any hospital? No Last DP export: 04/03/19 12:59 pm Patient Name: BLAYNE JONES Page [phone] at 1649 All edits/amendments must be made on the electronic document DICTATION DATE: 04/06/191648 JACK MACHINE OPERATOR: REHANA 04/06/191648 RPT#: [id number] ID DATE: STATUS: ADM IN [facility] [address] [place] [address] END OF REPORT
[2019-04-10 18:07] LABS: AEROBE ID Final report (())
== END 2019-04-06 17:18 | disposition home or self-care (01) | DRG 158 ==
LOC: D.ER 04:59 → D.M2 08:46
PROVIDERS: Anesthesiology; Family Medicine; Family Medicine Adult Medicine; Otolaryngology; ADMIT Internal Medicine Nephrology; ATTEND Internal Medicine Nephrology
PROC: 0C96XZZ Drainage of Lower Gingiva, External Approach (ICD-10-PCS; 2019-04-05)
PROC: 0CDXXZ0 Extraction of Lower Tooth, Single, External Approach (ICD-10-PCS; principal; 2019-04-05 07:30)
DX: M27.2 Inflammatory conditions of jaws (principal); L03.811 Cellulitis of head [any part, except face]; K02.9 Dental caries, unspecified; S02.5XXA Fracture of tooth (traumatic), initial encounter for closed fracture; X58.XXXA Exposure to other specified factors, initial encounter; T78.3XXA Angioneurotic edema, initial encounter; T36.0X5A Adverse effect of penicillins, initial encounter; I10 Essential (primary) hypertension; K04.7 Periapical abscess without sinus

== ENCOUNTER 2019-04-08 10:54 | Emergency (ER) | payer OTHER ==
[~2019-04-08] VITALS: Ht 180.3 cm; Wt 119.1 kg
[~2019-04-08 10:54] MED LIST changes: +AUGMENTIN 875-11 TAB PO; +FOLIC ACID1 MG PO; +HYDROCODON-ACE1 EA10 PO; +IBUPROFEN800 MG PO; +LISINOPRIL10 MG PO; +NORVASC10 MG PO
[2019-04-08 10:59] VITALS: Ht 180.3 cm; Wt 119.1 kg
[2019-04-08 11:28] LABS: BASOPHILS 0.1 % (0-2); EOSINOPHILS 2.3 % (0-7); HEMATOCRIT 44.3 % (42.0-54.0); HEMOGLOBIN 15.7 g/dL (13.5-17.5); IMMATURE GRANULOCYTES 3.5 % (0-5); LYMPHOCYTES 21.7 % (15-50); MCH 32.4 pg (26.0-34.0); MCHC 35.4 g/dL (31.0-37.0); MCV 91.3 fL (80.0-100.0); MEAN PLATELET VOLUME 9.6 fL (7.4-10.4); MONOCYTES 8.2 % (2-11); NEUTROPHILS 64.2 % (40-80); PLATELET COUNT 345 10x3/uL (130-400); RBC 4.85 10x6/uL (4.20-6.10); RDW 12.6 % (11.5-14.5); WBC 11.4 10x3/uL (4.8-10.8)
[2019-04-08 11:40] LABS: ALBUMIN 2.8 g/dL (3.4-5.0); ALKALINE PHOSPHATASE 76 U/L (46-116); ALT (SGPT) 32 U/L (10-68); BILIRUBIN - TOTAL 0.48 mg/dL (0.2-1.3); C-REACTIVE PROTEIN 2.1 mg/dL (0.0-0.9); CALC OSMOLALITY 281 mosm/kg (275-300); CALCIUM 8.4 mg/dL (8.5-10.1); CARBON DIOXIDE 30.5 mmol/L (21.0-32.0); CHLORIDE - SERUM 103 mmol/L (98-107); GLUCOSE 157 mg/dL (74-106); POTASSIUM - SERUM 3.3 mmol/L (3.5-5.1); PROTEIN - SERUM 6.8 g/dL (6.4-8.2); SODIUM 139 mmol/L (136-145); UREA NITROGEN 14 mg/dL (7-18); eGFR NON AFRICAN AMERICAN 86 mL/min (90-120)
[2019-04-08] MEDS ORDERED: FLAGYL500 MG PO (13:42)
[2019-04-08] MEDS ORDERED: HYDROCODON-ACE1 EAC7 PO (15:52)
[2019-04-08 16:35] VITALS: BP 126/84
== END 2019-04-08 16:36 | disposition home or self-care (01) ==
LOC: D.ER 10:54
PROVIDERS: Emergency Medicine
DX: K12.2 Cellulitis and abscess of mouth (principal); R22.9 Localized swelling, mass and lump, unspecified

== ENCOUNTER 2019-11-17 23:34 | Emergency (ER) | payer OTHER ==
[~2019-11-17] VITALS: Ht 180.3 cm; Wt 113.6 kg
[~2019-11-17 23:34] MED LIST changes: +FLAGYL500 MG PO; +HYDROCODON-ACE1 EAC7 PO
[2019-11-17 23:41] VITALS: Ht 180.3 cm; Wt 113.6 kg
[2019-11-18] MEDS ORDERED: ANALPRAM HC 2.530 GM RC (00:02)
[2019-11-18 00:30] VITALS: BP 138/89
== END 2019-11-18 00:18 | disposition home or self-care (01) ==
LOC: D.ER 23:34
DX: K64.5 Perianal venous thrombosis (principal); I10 Essential (primary) hypertension